=== PATIENT | male | born 1985 | race African-American/Black ===

== ENCOUNTER 2018-11-05 11:47 | Emergency (ER) | payer OTHER ==
[~2018-11-05] VITALS: Ht 172.7 cm; Wt 74.8 kg
[2018-11-05 13:02] LABS: ABSOLUTE NEUTROPHILS 5.8 thou/uL (1.4-8.2); BASOPHILS 1.1 % (0.0-2.0); EOSINOPHILS 0.7 % (0.0-3.0); HEMATOCRIT 42.9 % (42.0-52.0); HEMOGLOBIN 14.7 gm/dL (14.0-18.0); LYMPHOCYTES 23.8 % (24.0-44.0); MCH 30.3 pg (26.0-34.0); MCHC 34.2 g/dL (28.0-37.0); MCV 88.6 fL (80.0-100.0); MONOCYTES 6.5 % (1.0-8.0); PLATELET COUNT 247 thou/uL (150-400); POLYS 67.9 % (36.0-66.0); RBC 4.84 mil/uL (4.50-6.00); RDW 14.2 % (10.5-14.5); WBC 8.6 thou/uL (4.0-11.0)
[2018-11-05 13:09] LABS: ANION GAP 9 mmol/L (7-16); BUN 13 mg/dL (7-18); CALCIUM 9.4 mg/dL (8.5-10.1); CHLORIDE 103 mmol/L (98-107); CO2 27 mmol/L (21-32); CREATININE 1.2 mg/dL (0.7-1.3); GLUCOSE 93 mg/dL (74-106); POTASSIUM 4.2 mmol/L (3.5-5.1); SODIUM 139 mmol/L (136-145)
[2018-11-05 13:18] LABS: ALBUMIN 4.4 g/dL (3.4-5.0); SGOT 23 U/L (15-37); SGPT 19 U/L (30-65); TOTAL BILIRUBIN 0.6 mg/dL (<0.1-1.0); TOTAL PROTEIN 7.9 g/dL (6.4-8.2); TROPONIN-I <0.06 ng/mL (<0.06)
--- NOTE | 2018-11-05 14:01 | EKG ---
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 : 1985 Requested By: Evangelina Lopez Order Number: [id number] MD: Asher Serrano Measurements Intervals [place] Rate: 75 P: 80 GA: 132 QRS: 78 QRSD: 82 T: 68 QT: 361 QTc: 404 Interpretive Statements Sinus rhythm RSR' in V1 or V2, probably normal variant ST elev, probable normal early repol pattern No previous ECG available for comparison Electronically Signed On 11-05-2018 14:01:20 COMMUNICATIONS LEAD by Asher Serrano [email or web address] <ELECTRONICALLY SIGNED> By: Asher Serrano MD, [facility] 11/05/18 1401 1247 1247 Asher Serrano MD, FACC /EPI
[2018-11-05 14:11] VITALS: BP 131/72
== END 2018-11-05 14:12 | disposition home or self-care (01) ==
LOC: ER 11:47
PROVIDERS: Physician Assistant
DX: R53.81 Other malaise (principal); R06.00 Dyspnea, unspecified

== ENCOUNTER 2020-08-05 20:03 | Emergency (ER) | payer OTHER ==
[~2020-08-05] VITALS: Ht 172.7 cm; Wt 70.3 kg
[2020-08-05 20:36] LABS: ABSOLUTE NEUTROPHILS 6.4 thou/uL (1.4-8.2); BASOPHILS 0.6 % (0.0-2.0); EOSINOPHILS 1.9 % (0.0-3.0); HEMOGLOBIN 13.5 gm/dL (14.0-18.0); LYMPHOCYTES 26.2 % (24.0-44.0); MCH 30.9 pg (26.0-34.0); MCHC 34.5 g/dL (28.0-37.0); MCV 89.4 fL (80.0-100.0); MONOCYTES 6.6 % (1.0-8.0); PLATELET COUNT 243 thou/uL (150-400); POLYS 64.7 % (36.0-66.0); RBC 4.37 mil/uL (4.50-6.00); RDW 13.7 % (10.5-14.5); WBC 9.9 thou/uL (4.0-11.0)
[2020-08-05 20:44] LABS: ANION GAP 14 mmol/L (7-16); BUN 13 mg/dL (7-18); CALCIUM 9.3 mg/dL (8.5-10.1); CHLORIDE 103 mmol/L (98-107); CO2 22 mmol/L (21-32); CREATININE 0.9 mg/dL (0.7-1.3); GLUCOSE 102 mg/dL (74-106); POTASSIUM 3.6 mmol/L (3.5-5.1); SODIUM 139 mmol/L (136-145)
[2020-08-05 20:54] LABS: ALBUMIN 5.4 g/dL (3.4-5.0); SGOT 24 U/L (15-37); SGPT 18 U/L (30-65); TOTAL BILIRUBIN 0.6 mg/dL (0.2-1.0); TOTAL PROTEIN 7.7 g/dL (6.4-8.2); TROPONIN-I <0.06 ng/mL (<0.06)
[2020-08-05 21:51] VITALS: BP 135/96
--- NOTE | 2020-08-06 07:42 | EKG ---
[facility] [address] ELECTROCARDIOGRAM REPORT Name: FARZANEH COLBERT [facility] [place] [facility] [id number] Admission: 08/05/20 Attend Phys: Discharge: 08/05/20 Date of : 83 Report #: [id number] THIS REPORT FOR: cc: JEANNA May family physician/PCP JEANNA May family physician/PCP Lalito Rueda MD [facility] THIS REPORT FOR: //name// [facility] ED Test Date: 2020-08-05 Test Time: 20:08:24 Pat Name: FARZANEH COLBERT Department: Room: Gender: 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: [facility] : 1985 Requested By: Kathrine Dhaliwal Order Number: [id number] MD: Lalito Rueda Measurements Intervals [place] Rate: 74 P: 91 SC: 136 QRS: 70 QRSD: 83 T: 63 QT: 357 QTc: 396 Interpretive Statements Sinus rhythm RSR' in V1 or V2, probably normal variant Compared to ECG 11/05/2018 12:47:20 ST (T wave) deviation no longer present Electronically Signed On 08-06-2020 7:42:45 CDT by Lalito Rueda [email or web address] <ELECTRONICALLY SIGNED> By: Lalito Rueda MD, FAC 08/06/20 0742 07 07 Lalito Rueda MD, [facility] /EPI
== END 2020-08-05 21:52 | disposition home or self-care (01) ==
LOC: ER 20:03
PROVIDERS: Student in an Organized Health Care Education/Training Program
DX: R07.89 Other chest pain (principal)